=== PATIENT | female | born 2000 | race Caucasian/White ===

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

== ENCOUNTER 2019-03-24 19:49 | Inpatient (IN) | payer BC ==
--- NOTE | 2019-03-24 19:56 | ED ---
General Adult HPI - General Chief complaint: Shortness of Breath Stated complaint: SOB Time Seen by Provider: 03/24/19 19:55 Source: patient Mode of arrival: ambulatory Limitations: no limitations - History of Present Illness Initial comments: 19-year-old female history of asthma presents emergency department for shortness of breath asthma exacerbation. Patient states that she has had cough congestion for the past couple days today she had increasing shortness of breath if identical to her previous asthma exacerbations. 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 Patient denies any leg swelling recent surgeries hemoptysis chest pain or pain with deep inspiration. Patient denies any known history of cancer. Patient denies fevers. Patient has no other complaints. Patient took a total of 7 albuterol nebulized treatments prior to arrival. Patient is able to speak complete sentences however has significant abdominal breathing and slight retractions obvious gross examination. - Related Data Home Medications Medication Instructions Recorded Confirmed Albuterol Inhaler [Ventolin Hfa 2 puff INHALATION RT-Q4H PRN 08/07/16 03/24/19 Inhaler] Albuterol Nebulized [Ventolin 2.5 mg INHALATION RT-QID PRN 01/12/17 03/24/19 Nebulized] Azithromycin [Zithromax Z-pack] See Taper PO DAILY 03/24/19 03/24/19 D-Methorphan/PE/Acetaminophen 2 cap PO Q6H PRN 03/24/19 03/24/19 [Vicks Dayquil Liquicaps] Dm/Acetaminophen/Doxylamine [Vicks 2 cap PO Q6H PRN 03/24/19 03/24/19 Nyquil Liquicaps] Escitalopram [Lexapro] 10 mg PO DAILY 03/24/19 03/24/19 Etonogestrel/Ethinyl Estradiol 1 ring VAGINAL DIRECTED 03/24/19 03/24/19 [Nuvaring Vaginal Ring] Fluticasone/Salmeterol [Advair Hfa 2 puff INHALATION RT-BID 03/24/19 03/24/19 230-21 Mcg Inhaler] predniSONE 50 mg PO DAILY 03/24/19 03/24/19 Previous Rx's Medication Instructions Recorded Montelukast [Singulair] 10 mg PO HS #30 tab 09/25/17 Allergies Allergy/AdvReac Type Severity Reaction Status Date / Time No Known Allergies Allergy Verified 03/24/19 22:30 Review of Systems ROS Statement: Those systems with pertinent positive or pertinent negative responses have been documented in the HPI. ROS Other: All systems not noted in ROS Statement are negative. Past Medical History Past Medical History: Asthma History of Any Multi-Drug Resistant Organisms: None Reported Additional Past Surgical History / Comment(s): [place] teeth removal Past Anesthesia/Blood Transfusion Reactions: No Reported Reaction Past Psychological History: Anxiety, Depression Smoking Status: Never smoker Past Alcohol Use History: None Reported Past Drug Use History: None Reported - Past Family History Mother Additional Family Medical History / Comment(s): [place] Father Family Medical History: Hypertension Brother(s) Family Medical History: Unable to Obtain (No brothers) Sister(s) Family Medical History: Unable to Obtain (No sisters) General Exam - General Exam Comments Initial Comments: General: The patient is awake and alert Eye: +3 mm pupils are equal, round and reactive to light, extra-ocular movements are intact. No nystagmus. There is normal conjunctiva bilaterally. No signs of icterus. No photophobia Ears, nose, mouth and throat: There are moist mucous membranes and no oral lesions. Oropharynx was not erythematous there is no tonsillar enlargement exudates or lesions. Uvula midline. T No anterior cervical lymphadenopathy. Rhinorrhea, clear and bilateral nares. No tripoding, no drooling. Neck: The neck is supple, there is no tenderness or JVD. No nuchal rigidity Cardiovascular: There is a regular rate and rhythm. No murmur, rub or gallop is appreciated. Respiratory: Lung sounds are diminished in all gonzalez there is slight inspiratory and expiratory wheezes audible. No stridor no rales no rhonchi appreciated. Mild retractions, moderate abdominal breathing able to speak complete sentences. Gastrointestinal: Soft, non-distended, non-tender abdomen without masses or organomegaly noted. There is no rebound or guarding present. Bowel sounds are unremarkable. Musculoskeletal: Normal ROM, no tenderness. Strength 5/5. Sensation intact. Radial pulses equal bilaterally 2+. Neurological: A&O x 3. CN II-XII intact grossly, There are no obvious motor or sensory deficits. Coordination appears grossly intact. Speech appears normal, no muffling. Skin: Skin is warm and dry and no rashes or lesions are noted. No extremity edema Psychiatric: Cooperative Limitations: no limitations Course Vital Signs 03/24/19 03/24/19 03/24/19 19:50 20:08 20:22 Temperature 99.3 F Pulse Rate 102 H 134 H 132 H Pulse Rate [ Right] Respiratory 30 H 26 H 22 Rate Blood Pressure 145/94 Blood Pressure [Right Arm] O2 Sat by Pulse 95 100 Oximetry 03/24/19 03/24/19 03/24/19 20:39 21:33 22:52 Temperature Pulse Rate 135 H 109 H 110 H Pulse Rate [ Right] Respiratory 22 19 21 Rate Blood Pressure 132/92 133/88 Blood Pressure [Right Arm] O2 Sat by Pulse 96 97 Oximetry 03/24/19 23:00 Temperature 98.0 F Pulse Rate Pulse Rate [ 101 H Right] Respiratory 14 Rate Blood Pressure Blood Pressure 124/83 [Right Arm] O2 Sat by Pulse 96 Oximetry Medical Decision Making - Medical Decision Making 19-year-old female presenting for shortness of breath. History of asthma. 7 treatments prior to the presentation. Given Solu-Medrol magnesium 7.5 mg treatment. Improvement of air movement, wheeze persistent. Patient will admitted for PRN and scheduled treatments. Patient agreeable, Stable upon transfer to floor with resolution of retractions/abdominal breathing. Discussed case with attending provider Dr. Hopper who is agreeable care plan admission she spoke with the admitting provider Dr. Fuller. - Lab Data Result diagrams: 03/24/19 20:34 03/24/19 20:34 Lab Results 03/24/19 03/24/19 03/24/19 Range/Units 20:08 20:34 20:34 WBC 3.8 (3.8-10.6) k/uL RBC 4.98 (3.80-5.40) m/uL Hgb 14.9 (11.4-16.0) gm/dL Hct 46.3 H (34.0-46.0) % MCV 93.0 (80.0-100.0) fL MCH 29.8 (25.0-35.0) pg MCHC 32.1 (31.0-37.0) g/dL RDW 12.2 (11.5-15.5) % Plt Count 285 (150-450) k/uL Neutrophils % 70 % Lymphocytes % 23 % Monocytes % 4 % Eosinophils % 0 % Basophils % 0 % Neutrophils # 2.7 (1.3-7.7) k/uL Lymphocytes # 0.9 L (1.0-4.8) k/uL Monocytes # 0.2 (0-1.0) k/uL Eosinophils # 0.0 (0-0.7) k/uL Basophils # 0.0 (0-0.2) k/uL Sodium 141 (137-145) mmol/L Potassium 4.3 (3.5-5.1) mmol/L Chloride 111 H (98-107) mmol/L Carbon Dioxide 19 L (22-30) mmol/L Anion Gap 11 mmol/L BUN 13 (7-17) mg/dL Creatinine 0.72 (0.52-1.04) mg/dL Est GFR (CKD-EPI)AfAm >90 (>60 ml/min/1.73 sqM) Est GFR (CKD-EPI)NonAf >90 (>60 ml/min/1.73 sqM) Glucose 117 H (74-99) mg/dL Calcium 10.0 (8.4-10.2) mg/dL Total Bilirubin 0.3 (0.2-1.3) mg/dL AST 19 (14-36) U/L ALT 23 (9-52) U/L Alkaline Phosphatase 76 (38-126) U/L Total Protein 7.5 (6.3-8.2) g/dL Albumin 4.4 (3.5-5.0) g/dL Urine HCG, Qual (Not Detectd) Influenza Type A RNA Not Detected (Not Detectd) Influenza Type B (PCR) Not Detected (Not Detectd) 03/24/19 Range/Units 20:35 WBC (3.8-10.6) k/uL RBC (3.80-5.40) m/uL Hgb (11.4-16.0) gm/dL Hct (34.0-46.0) % MCV (80.0-100.0) fL MCH (25.0-35.0) pg MCHC (31.0-37.0) g/dL RDW (11.5-15.5) % Plt Count (150-450) k/uL Neutrophils % % Lymphocytes % % Monocytes % % Eosinophils % % Basophils % % Neutrophils # (1.3-7.7) k/uL Lymphocytes # (1.0-4.8) k/uL Monocytes # (0-1.0) k/uL Eosinophils # (0-0.7) k/uL Basophils # (0-0.2) k/uL Sodium (137-145) mmol/L Potassium (3.5-5.1) mmol/L Chloride (98-107) mmol/L Carbon Dioxide (22-30) mmol/L Anion Gap mmol/L BUN (7-17) mg/dL Creatinine (0.52-1.04) mg/dL Est GFR (CKD-EPI)AfAm (>60 ml/min/1.73 sqM) Est GFR (CKD-EPI)NonAf (>60 ml/min/1.73 sqM) Glucose (74-99) mg/dL Calcium (8.4-10.2) mg/dL Total Bilirubin (0.2-1.3) mg/dL AST (14-36) U/L ALT (9-52) U/L Alkaline Phosphatase (38-126) U/L Total Protein (6.3-8.2) g/dL Albumin (3.5-5.0) g/dL Urine HCG, Qual Not Detected (Not Detectd) Influenza Type A RNA (Not Detectd) Influenza Type B (PCR) (Not Detectd) Disposition Clinical Impression: Asthma exacerbation, Dyspnea Disposition: ADMITTED IP TO THIS [facility] Condition: Stable Is patient prescribed a controlled substance at d/c from ED?: No Time of Disposition: 21:00 Decision to Admit Reason: Admit from EC Decision Date: 03/24/19
[2019-03-24] MEDS ORDERED: ALBUTEROL NEBULIZED 2.5 MG/3 ML INHALATION STA ×2 (19:58→20:30)
[2019-03-24] MEDS ORDERED: methylPREDNISolone SOD SUCCI 125 MG/2 ML VIAL IV STA (20:00)
[2019-03-24] MEDS ORDERED: MAGNESIUM SULFATE-D5W PMX 1 GM in DEXTROSE/WATER 1 100ML.BAG IVPB ONE (20:00)
[2019-03-24] MEDS: ALBUTEROL INHALATION STA ×4 (20:10→20:32)
[2019-03-24] MEDS: SODIUM CHLORIDE 0.9% INHALATION STA ×4 (20:10→20:32)
[2019-03-24 20:49] LABS: Basophils % (A) 0 %; Eosinophils % (A) 0 %; HCT 46.3 % (34.0-46.0); HGB 14.9 gm/dL (11.4-16.0); Lymphocytes # (A) 0.9 k/uL (1.0-4.8); Lymphocytes % (A) 23 %; MCH 29.8 pg (25.0-35.0); MCHC 32.1 g/dL (31.0-37.0); Mean Platelet Volume 6.3; Monocytes # (A) 0.2 k/uL (0-1.0); Monocytes % (A) 4 %; Neutrophils # (A) 2.7 k/uL (1.3-7.7); Neutrophils % (A) 70 %; Platelet Count 285 k/uL (150-450); RBC 4.98 m/uL (3.80-5.40); RDW 12.2 % (11.5-15.5); WBC 3.8 k/uL (3.8-10.6)
[2019-03-24 21:01] LABS: ALT 23 U/L (9-52); AST 19 U/L (14-36); African American GFR (CKD) >90 (>60 ml/min/1.73 sqM); Albumin 4.4 g/dL (3.5-5.0); Alkaline Phosphatase 76 U/L (38-126); Anion Gap 11 mmol/L; Blood Urea Nitrogen 13 mg/dL (7-17); Carbon Dioxide 19 mmol/L (22-30); Chloride 111 mmol/L (98-107); Glucose 117 mg/dL (74-99); Non-African American GFR(CKD) >90 (>60 ml/min/1.73 sqM); Potassium 4.3 mmol/L (3.5-5.1); Sodium 141 mmol/L (137-145); Total Bilirubin 0.3 mg/dL (0.2-1.3); Total Protein 7.5 g/dL (6.3-8.2)
--- NOTE | 2019-03-24 21:26 | XR ---
EXAMINATION TYPE: XR chest 2V DATE OF EXAM: 03/24/2019 COMPARISON: 01/12/2017 HISTORY: Short of breath TECHNIQUE: Frontal and lateral views of the chest are obtained. FINDINGS: Heart and mediastinum are normal. Lungs are clear. Diaphragm is normal. Bony thorax appear s normal. Pulmonary vascularity is normal. IMPRESSION: Normal chest. No change.
[2019-03-24] MEDS ORDERED: IPRATROPIUM-ALBUTEROL 3 ML NEB INHALATION STA (22:02)
[2019-03-24] MEDS: IPRATROPIUM-ALBUTEROL 3 ML NEB INHALATION PRN (23:48)
[2019-03-25] MEDS: IPRATROPIUM-ALBUTEROL 3 ML NEB INHALATION PRN (03:18)
[2019-03-25] MEDS: ALBUTEROL NEBULIZED 2.5 MG/3 ML INHALATION SCH ×4 (08:00→20:43)
[2019-03-25] MEDS: predniSONE 20 MG TAB PO SCH (08:30)
[2019-03-25] MEDS: LORATADINE 10 MG TAB PO SCH (08:30)
[2019-03-25] MEDS ORDERED: SERTRALINE 25 MG TAB PO SCH (09:00)
--- NOTE | 2019-03-25 11:47 | P.HPIM ---
History of Present Illness 19-year-old female with a history of asthma states the last 6 days she's had a cough fever and bronchospasm. Patient went to clinic treated with Zithromax steroids no improvement. Review of Systems Constitutional: Reports fever Ears, nose, mouth and throat: Reports sore throat Respiratory: Reports cough, Reports dyspnea, Reports wheezing Past Medical History Past Medical History: Asthma History of Any Multi-Drug Resistant Organisms: None Reported Additional Past Surgical History / Comment(s): [place] teeth removal Past Anesthesia/Blood Transfusion Reactions: No Reported Reaction Additional Past Anesthesia/Blood Transfusion Reaction / Comment(s): Woke up during surgery. Past Psychological History: Anxiety, Depression Smoking Status: Never smoker Past Alcohol Use History: None Reported Past Drug Use History: None Reported - Past Family History Mother Additional Family Medical History / Comment(s): [place] Father Family Medical History: Hypertension Brother(s) Family Medical History: Unable to Obtain (No brothers) Sister(s) Family Medical History: Unable to Obtain (No sisters) Medications and Allergies Home Medications Medication Instructions Recorded Confirmed Type Albuterol Inhaler [Ventolin Hfa 2 puff INHALATION RT-Q4H PRN 08/07/16 03/24/19 History Inhaler] Albuterol Nebulized [Ventolin 2.5 mg INHALATION RT-QID PRN 01/12/17 03/24/19 History Nebulized] Montelukast [Singulair] 10 mg PO HS #30 tab 01/14/17 03/24/19 Rx Azithromycin [Zithromax Z-pack] See Taper PO DAILY 03/24/19 03/24/19 History D-Methorphan/PE/Acetaminophen 2 cap PO Q6H PRN 03/24/19 03/24/19 History [Vicks Dayquil Liquicaps] Dm/Acetaminophen/Doxylamine [Vicks 2 cap PO Q6H PRN 03/24/19 03/24/19 History Nyquil Liquicaps] Escitalopram [Lexapro] 10 mg PO DAILY 03/24/19 03/24/19 History Etonogestrel/Ethinyl Estradiol 1 ring VAGINAL DIRECTED 03/24/19 03/24/19 History [Nuvaring Vaginal Ring] Fluticasone/Salmeterol [Advair Hfa 2 puff INHALATION RT-BID 03/24/19 03/24/19 History 230-21 Mcg Inhaler] predniSONE 50 mg PO DAILY 03/24/19 03/24/19 History Allergies Allergy/AdvReac Type Severity Reaction Status Date / Time No Known Allergies Allergy Verified 03/24/19 22:30 Physical Exam Vitals: Vital Signs Temp Pulse Pulse Pulse Resp BP BP 03/25/19 11:41 84 03/25/19 11:27 80 03/25/19 08:14 88 03/25/19 08:00 88 03/25/19 05:00 97.8 F 87 18 119/78 03/25/19 03:46 94 03/25/19 03:19 94 03/25/19 00:07 82 03/24/19 23:49 82 03/24/19 23:00 98.0 F 101 H 14 124/83 03/24/19 22:52 110 H 21 133/88 03/24/19 21:33 109 H 19 132/92 03/24/19 20:39 135 H 22 03/24/19 20:22 132 H 22 03/24/19 20:08 134 H 26 H 03/24/19 19:50 99.3 F 102 H 30 H 145/94 Pulse Ox 03/25/19 11:41 03/25/19 11:27 03/25/19 08:14 03/25/19 08:00 03/25/19 05:00 95 03/25/19 03:46 03/25/19 03:19 03/25/19 00:07 03/24/19 23:49 94 L 03/24/19 23:00 96 03/24/19 22:52 97 03/24/19 21:33 96 03/24/19 20:39 03/24/19 20:22 100 03/24/19 20:08 03/24/19 19:50 95 Intake and Output 03/24/19 03/25/19 03/25/19 22:59 06:59 14:59 Intake Total 600 Balance 600 Intake: Oral 600 Other: Voiding Method Toilet # Voids 3 Weight 56 kg - Constitutional General appearance: mild distress - EENT Eyes: PERRLA ENT: pharyngeal erythema Ears: bilateral: normal - Neck Neck: lymphadenopathy - Respiratory Respiratory: bilateral: diminished, wheezing - Cardiovascular Rhythm: regular - Gastrointestinal General gastrointestinal: soft - Integumentary Integumentary: normal - Neurologic Neurologic: CNII-XII intact - Musculoskeletal Musculoskeletal: gait normal - Psychiatric Psychiatric: A&O x's 3, appropriate affect, intact judgment & insight Results CBC & Chem 7: 03/24/19 20:34 03/24/19 20:34 Labs: Abnormal Lab Results - Last 24 Hours (Table) 03/24/19 03/24/19 Range/Units 20:34 20:34 Hct 46.3 H (34.0-46.0) % Lymphocytes # 0.9 L (1.0-4.8) k/uL Chloride 111 H (98-107) mmol/L Carbon Dioxide 19 L (22-30) mmol/L Glucose 117 H (74-99) mg/dL Chest x-ray: report reviewed Thrombosis Risk Factor Assmnt - Choose All That Apply Any of the Below Risk Factors Present?: No Other Risk Factors: No Other congenital or acquired thrombophilia - If yes, enter type in comment: No Thrombosis Risk Factor Assessment Level: Very Low Risk Assessment and Plan Plan: Assessment History of asthma Acute exacerbation with dyspnea Failed outpatient Anxiety disorder Plan Pulmonology consultation on bronchodilators and steroids
--- NOTE | 2019-03-25 13:23 | P.CNPUL ---
History of Present Illness Consult date: 03/25/19 Reason for consult: asthma Chief complaint: Shortness of breath, cough, and wheezing. History of present illness: This is a 19-year-old white female, known history of mild persistent asthma since she was 2 years old. Initially her asthma was mostly exercise induced, however as she became older, the patient developed worsening symptoms of asthma, maintained mostly on albuterol, and she is her albuterol almost on a daily basis. She was also using Advair on a daily basis, and Singulair. Back in December, the patient had an episode of acute exacerbation, and she was seen by Dr. Katz who recommended a course of prednisone burst and taper. And she was instructed to have some ALLERGY testing and serum IgE levels to be done once she is off the prednisone. However this was never done, and the patient has not been seen by Dr. Katz since December. She has been following up at the [facility] for left hip dysplasia. Over the last 2 weeks, patient had been complaining of intermittent episodes of cough wheezing shortness of breath, symptoms have been much worse over the last 6 days. Cough is described as productive with yellow phlegm, at times clear. No hemoptysis, no brownish phlegm. Denies any chest pain. Patient has been very compliant with her inhalers. However the patient has at least 5 cats at home, and she has one dog. Never been ALLERGY tested for pets. She has symptoms of chronic ALLERGIC rhinitis, she has no symptoms of GERD. She has no symptoms of specific ALLERG IES but her symptoms seemed to be worse during spring and fall. Again the patient has been using her rescue inhaler almost on a daily basis for a long period of time. Chest x-ray on admission showed no evidence of infiltrate. Patient was admitted placed on bronchodilators, antibiotics, steroids, and I was asked to see her on consultation. Review of Systems Constitutional: Denies any fever chills or night sweats denies any weight loss. HEENT: Patient has symptoms of ALLERGIC rhinitis, denies symptoms of chronic sinusitis. Denies sore throat, denies any blurred vision, denies any diplopia. Pulmonary: As noted in HPI, mostly intermittent episodes of cough wheezing shortness of breath, and daily use of rescue inhalers. Cardiac: Denies any chest pain, denies palpitations, denies any syncope, denies any diaphoresis. GI: She has history of irritable bowel syndrome, mostly constipation, has been seen by turn sewer out of town, and she was placed on Linzess which seems to help her constipation significantly. Genitourinary: Denies any dysuria hematuria frequency urgency. Denies any difficulty urinating. Musculoskeletal: Denies any limitation in range of motion, denies any deformities, but she does have chronic left hip dysplasia being followed at the [facility]/orthopedics. Skin: Denies any symptoms of eczema, denies any rashes. Neurologic: Denies any headache blurred vision dizziness. Hematologic: Denies any clotting bleeding or bruising Endocrine: Denies any heat or cold intolerance, denies any polyuria, denies any polyphagia, denies any polydipsia. psychiatric: Denies any symptoms of depression. Past Medical History Past Medical History: Asthma History of Any Multi-Drug Resistant Organisms: None Reported Additional Past Surgical History / Comment(s): [place] teeth removal Past Anesthesia/Blood Transfusion Reactions: No Reported Reaction Additional Past Anesthesia/Blood Transfusion Reaction / Comment(s): Woke up during surgery. Past Psychological History: Anxiety, Depression Smoking Status: Never smoker Past Alcohol Use History: None Reported Past Drug Use History: None Reported - Past Family History Mother Additional Family Medical History / Comment(s): [place] Father Family Medical History: Hypertension Brother(s) Family Medical History: Unable to Obtain (No brothers) Sister(s) Family Medical History: Unable to Obtain (No sisters) Medications and Allergies Home Medications Medication Instructions Recorded Confirmed Type Albuterol Inhaler [Ventolin Hfa 2 puff INHALATION RT-Q4H PRN 08/07/16 03/24/19 History Inhaler] Albuterol Nebulized [Ventolin 2.5 mg INHALATION RT-QID PRN 01/12/17 03/24/19 History Nebulized] Montelukast [Singulair] 10 mg PO HS #30 tab 01/14/17 03/24/19 Rx Azithromycin [Zithromax Z-pack] See Taper PO DAILY 03/24/19 03/24/19 History D-Methorphan/PE/Acetaminophen 2 cap PO Q6H PRN 03/24/19 03/24/19 History [Vicks Dayquil Liquicaps] Dm/Acetaminophen/Doxylamine [Vicks 2 cap PO Q6H PRN 03/24/19 03/24/19 History Nyquil Liquicaps] Escitalopram [Lexapro] 10 mg PO DAILY 03/24/19 03/24/19 History Etonogestrel/Ethinyl Estradiol 1 ring VAGINAL DIRECTED 03/24/19 03/24/19 History [Nuvaring Vaginal Ring] Fluticasone/Salmeterol [Advair Hfa 2 puff INHALATION RT-BID 03/24/19 03/24/19 History 230-21 Mcg Inhaler] predniSONE 50 mg PO DAILY 03/24/19 03/24/19 History Allergies Allergy/AdvReac Type Severity Reaction Status Date / Time No Known Allergies Allergy Verified 03/24/19 22:30 Physical Exam Vitals: Vital Signs Temp Pulse Pulse Pulse Resp BP BP 03/25/19 11:55 97.9 F 67 18 123/71 03/25/19 11:41 84 03/25/19 11:27 80 03/25/19 08:14 88 03/25/19 08:00 88 03/25/19 05:00 97.8 F 87 18 119/78 03/25/19 03:46 94 03/25/19 03:19 94 03/25/19 00:07 82 03/24/19 23:49 82 03/24/19 23:00 98.0 F 101 H 14 124/83 03/24/19 22:52 110 H 21 133/88 03/24/19 21:33 109 H 19 132/92 03/24/19 20:39 135 H 22 03/24/19 20:22 132 H 22 03/24/19 20:08 134 H 26 H 03/24/19 19:50 99.3 F 102 H 30 H 145/94 Pulse Ox 03/25/19 11:55 92 L 03/25/19 11:41 03/25/19 11:27 03/25/19 08:14 03/25/19 08:00 03/25/19 05:00 95 03/25/19 03:46 03/25/19 03:19 03/25/19 00:07 03/24/19 23:49 94 L 03/24/19 23:00 96 03/24/19 22:52 97 03/24/19 21:33 96 03/24/19 20:39 03/24/19 20:22 100 03/24/19 20:08 03/24/19 19:50 95 Intake and Output 03/24/19 03/25/19 03/25/19 22:59 06:59 14:59 Intake Total 600 Balance 600 Intake: Oral 600 Other: Voiding Method Toilet # Voids 3 Weight 56 kg Physical Exam: Revealed a 19-year-old female, on room air, pleasant, in no distress. Head: Atraumatic, normocephalic. HEENT:[Neck is supple.] [No neck masses.] [No thyromegaly.] [No JVD.] PERRLA, EOMI, no icterus. Chest: [Clear throughout, minimal fine wheezing on forced expiratory maneuver only. No chest wall tenderness. Cardiac: Normal S1 and S2, no S3 gallop, no murmur.] Abdomen: [Soft, nontender, no megaly, no rebound, no guarding, normal bowel so unds.] Extremities: [No clubbing, no edema, no cyanosis.] Neurological Exam: [No focal neurologic deficit.] Alert oriented 3. Psychiatric: Normal mood affect and normal mental status examination. Skin: No rashes. Lymphatics: No lymphadenopathy. Musculoskeletal: No limitations in range of motion, no muscle deformities. Results - Laboratory Findings CBC and BMP: 03/24/19 20:34 03/24/19 20:34 Abnormal lab findings: Abnormal Labs 03/24/19 03/24/19 20:34 20:34 Hct 46.3 H Lymphocytes # 0.9 L Chloride 111 H Carbon Dioxide 19 L Glucose 117 H - Diagnostic Findings Chest x-ray: image reviewed (Chest x-ray reviewed no evidence of active disease.) Assessment and Plan Assessment: Impression: 1 acute exacerbation of mild persistent asthma 2 multiple environmental ALLERGIES is strongly suspected. 3 history of irritable bowel syndrome/constipation/chronic 4 history of left hip dysplasia Recommendation: Continue present treatment plan including bronchodilators, antibiotics, prednisone, Singulair, patient will definitely need outpatient follow-up, she would likely benefit from having full pulmonary ALLERGY panel, serum IgE level should be done, total eosinophilic count should also be done, and determine whether the patient would benefit from other modalities of treatment of her asthma. And if the patient is also to have significant ALLERGY to cats or dogs, this will be discussed with the patient accordingly. We will continue to follow. Expect discharge planning in the next 24 hours, patient will need to be discharged on prednisone 40 mg tapered over a period of 3 weeks. And should have a follow-up with Dr. Katz in 2 weeks. Time with Patient: Greater than 30
[2019-03-25] MEDS: guaiFENesin-DM 100-10MG/5ML 10 ML CUP PO PRN (16:41)
[2019-03-25] MEDS: SYMBICORT 160-4.5 MCG INHALER INHALATION SCH (20:58)
[2019-03-25] MEDS: MONTELUKAST 10 MG TAB PO SCH (21:39)
[2019-03-26] MEDS: IPRATROPIUM-ALBUTEROL 3 ML NEB INHALATION PRN ×3 (00:04→23:38)
[2019-03-26] MEDS: ALBUTEROL NEBULIZED 2.5 MG/3 ML INHALATION SCH ×4 (07:36→20:11)
[2019-03-26] MEDS: SYMBICORT 160-4.5 MCG INHALER INHALATION SCH ×2 (07:36→20:11)
[2019-03-26] MEDS: predniSONE 20 MG TAB PO SCH (08:52)
[2019-03-26] MEDS: LORATADINE 10 MG TAB PO SCH (08:52)
[2019-03-26] MEDS: ESCITALOPRAM 10 MG TAB PO SCH (08:52)
--- NOTE | 2019-03-26 11:14 | P.PN ---
Subjective Patient resting in bed noted some improvement continues with expiratory wheeze. Had consultation with pulmonology discussed possible ALLERGY triggers Objective - Vital Signs Vital signs: Vital Signs Temp 98.1 F 03/26/19 04:52 Pulse 100 03/26/19 07:48 Resp 16 03/26/19 04:52 BP 113/66 03/26/19 04:52 Pulse Ox 91 L 03/26/19 04:52 Intake & Output 03/25/19 03/26/19 03/26/19 18:59 06:59 18:59 Intake Total 600 1200 Balance 600 1200 Intake: Oral 600 1200 Other: Voiding Method Toilet # Voids 3 - Constitutional General appearance: Present: mild distress - EENT Eyes: Present: PERRLA Ears: bilateral: normal - Neck Neck: Present: normal ROM - Respiratory Respiratory: bilateral: wheezing - Cardiovascular Rhythm: regular - Gastrointestinal General gastrointestinal: Present: soft - Integumentary Integumentary: Present: normal - Neurologic Neurologic: Present: CNII-XII intact - Musculoskeletal Musculoskeletal: Present: gait normal - Psychiatric Psychiatric: Present: A&O x's 3, appropriate affect, intact judgment & insight - Labs CBC & Chem 7: 03/24/19 20:34 03/24/19 20:34 Assessment and Plan Plan: Assessment Acute exacerbation of asthma dyspnea History of IBS History of left hip dysplasia Plan Continue consultation with pulmonology
--- NOTE | 2019-03-26 13:24 | P.PN ---
Subjective Progress Note Date: 03/26/19 Principal diagnosis: Acute exacerbation of mild persistent bronchial asthma This is a 19-year-old white female, known history of mild persistent asthma since she was 2 years old. Initially her asthma was mostly exercise induced, however as she became older, the patient developed worsening symptoms of asthma, maintained mostly on albuterol, and she is her albuterol almost on a daily basis. She was also using Advair on a daily basis, and Singulair. Back in December, the patient had an episode of acute exacerbation, and she was seen by Dr. Katz who recommended a course of prednisone burst and taper. And she was instructed to have some ALLERGY testing and serum IgE levels to be done once she is off the prednisone. However this was never done, and the patient has not been seen by Dr. Katz since December. She has been following up at the [facility] for left hip dysplasia. Over the last 2 weeks, patient had been complaining of intermittent episodes of cough wheezing shortness of breath, symptoms have been much worse over the last 6 days. Cough is described as productive with yellow phlegm, at times clear. No hemoptysis, no brownish phlegm. Denies any chest pain. Patient has been very compliant with her inhalers. However the patient has at least 5 cats at home, and she has one dog. Never been ALLERGY tested for pets. She has symptoms of chronic ALLERGIC rhinitis, she has no symptoms of GERD. She has no symptoms of specific ALL ERGIES but her symptoms seemed to be worse during spring and fall. Again the patient has been using her rescue inhaler almost on a daily basis for a long period of time. Chest x-ray on admission showed no evidence of infiltrate. Patient was admitted placed on bronchodilators, antibiotics, steroids, and I was asked to see her on consultation. On 03/26/2019 patient seen in follow-up on medical surgical floor. She is calm and comfortable, she states her breathing is improving, she has been ambulating about the room, and she states she is tolerating activity well, no chest tightness, occasional cough, no significant phlegm production, lung sounds reveal scattered rhonchi and some wheezing, but good air entry noted bilaterally, according to the nurse patient is having episodes of tachycardia when she is ambulating, patient seems to be relatively asymptomatic, no complaints of chest pain, related to some liberating medications. Room air pulse ox is 91%, no fever or chills, will continue current medical treatment. Objective - Vital Signs Vital signs: Vital Signs Temp 98.1 F 03/26/19 04:52 Pulse 92 03/26/19 11:47 Resp 16 03/26/19 04:52 BP 113/66 03/26/19 04:52 Pulse Ox 91 L 03/26/19 04:52 Intake & Output 03/25/19 03/26/19 03/26/19 18:59 06:59 18:59 Intake Total 600 1200 Balance 600 1200 Intake: Oral 600 1200 Other: Voiding Method Toilet # Voids 3 - Exam GENERAL EXAM: Alert, active, comfortable in no apparent distress. HEAD: Normocephalic/atraumatic. EYES: Normal reaction of pupils, equal size. Conjunctiva pink, sclera white. NOSE: Clear with pink turbinates. THROAT: No erythema or exudates. NECK: No masses, no JVD, no thyroid enlargement, no adenopathy. CHEST: No chest wall deformity. Symmetrical expansion. LUNGS: Equal air entry with few scattered rhonchi, and some wheezing, increased air entry bilaterally CVS: Regular rate and rhythm, normal S1 and S2, no gallops, no murmurs, no rubs ABDOMEN: Soft, nontender. No hepatosplenomegaly, normal bowel sounds, no guarding or rigidity. EXTREMITIES: No clubbing, no edema, no cyanosis, 2+ pulses and upper and lower extremities. MUSCULOSKELETAL: Muscle strength and tone normal. SPINE: No scoliosis or deformity SKIN: No rashes CENTRAL NERVOUS SYSTEM: Alert and oriented -3. No focal deficits, tone is normal in all 4 extremities. PSYCHIATRIC: Alert and oriented -3. Appropriate affect. Intact judgment and insight. - Labs CBC & Chem 7: 03/24/19 20:34 03/24/19 20:34 Assessment and Plan Plan: Assessment: 1 acute exacerbation of mild persistent asthma 2 multiple environmental ALLERGIES is strongly suspected. 3 history of irritable bowel syndrome/constipation/chronic 4 history of left hip dysplasia Plan: Continue current medical treatment, continue oral steroids, Symbicort, Claritin and Singulair, patient is improving, no acute events overnight. No chest tightness, no significant cough or congestion, patient is having episodes of SVT or sinus tachycardia with exertion. Continue to monitor, continue on medical treatment, if remains stable may consider discharge home in the next 24 hours I performed a history & physical examination of the patient and discussed their management with my nurse practitioner, Pallavi Decker. I reviewed the nurse practitioner's note and agree with the documented findings and plan of care. Lung sounds are positive for a few scattered wheezes. The findings and the impression was discussed with the patient. I attest to the documentation by the nurse practitioner. Time with Patient: Less than 30
[2019-03-26 15:33] LABS: African American GFR (CKD) >90 (>60 ml/min/1.73 sqM); Anion Gap 10 mmol/L; Blood Urea Nitrogen 15 mg/dL (7-17); Calcium 10.2 mg/dL (8.4-10.2); Carbon Dioxide 23 mmol/L (22-30); Chloride 106 mmol/L (98-107); Glucose 113 mg/dL (74-99); Magnesium 2.3 mg/dL (1.6-2.3); Non-African American GFR(CKD) >90 (>60 ml/min/1.73 sqM); Potassium 5.1 mmol/L (3.5-5.1); Sodium 139 mmol/L (137-145)
[2019-03-26 16:59] LABS: T4, Free (Free Thyroxine) 1.39 ng/dL (0.78-2.19)
[2019-03-26] MEDS: MONTELUKAST 10 MG TAB PO SCH (20:39)
[2019-03-27] MEDS: guaiFENesin-DM 100-10MG/5ML 10 ML CUP PO PRN (00:35)
[2019-03-27] MEDS: IPRATROPIUM-ALBUTEROL 3 ML NEB INHALATION PRN ×2 (02:51→16:32)
[2019-03-27] MEDS: ALBUTEROL NEBULIZED 2.5 MG/3 ML INHALATION SCH ×3 (07:06→16:32)
[2019-03-27] MEDS: SYMBICORT 160-4.5 MCG INHALER INHALATION SCH (07:11)
[2019-03-27] MEDS: LORATADINE 10 MG TAB PO SCH (07:53)
[2019-03-27] MEDS: ESCITALOPRAM 10 MG TAB PO SCH (07:53)
[2019-03-27] MEDS: predniSONE 20 MG TAB PO SCH (07:53)
--- NOTE | 2019-03-27 08:10 | ECHOF ---
Referral Reason:tachycardia MEASUREMENTS -------- HEIGHT: 162.6 cm WEIGHT: 55.8 kg BP: 145/92 RVIDd: 2.9 cm (< 3.3) IVSd: 1.0 cm (0.6 - 1.1) LVIDd: 3.8 cm (3.9 - 5.3) LVPWd: 1.3 cm (0.6 - 1.1) IVSs: 1.2 cm LVIDs: 2.8 cm LVPWs: 1.3 cm LAESV Index (A-L): 12.35 ml/m Ao Diam: 2.5 cm (2.0 - 3.7) AV Cusp: 1.9 cm (1.5 - 2.6) LA Diam: 2.8 cm (2.7 - 3.8) MV EXCURSION: 21.189 mm (> 18.000) MV EF SLOPE: 198 mm/s (70 - 150) EPSS: 0.4 cm MV E Simone: 0.82 m/s MV DecT: 115 ms MV A Simone: 0.65 m/s MV E/A Ratio: 1.25 FINDINGS -------- Sinus rhythm. This was a technically adequate study. The left ventricular size is normal. Left ventricular wall thickness is normal. There is normal g lobal left ventricular contractility. Overall left ventricular systolic function is normal with, an EF between 55 - 60 %. The diastolic filling pattern is normal for the age of the patient 12.68. The right ventricle is normal in size. Normal LA size by volume 22+/-6 ml/m2. The right atrial size is normal. Prominant coronary sinus Interatrial and interventricular septum intact. The aortic valve is trileaflet and appears structurally normal. There is no evidence of aortic regu rgitation. There is no evidence of aortic stenosis. There is trace mitral regurgitation. Mild tricuspid regurgitation present. Unable to estimate RVSP due to inadequate TR jet spectral dop pler profile. The pulmonic valve is normal. The aortic root size is normal. Normal inferior vena cava with normal inspiratory collapse consistent with estimated right atrial pre ssure of 5 mmHg. There is no pericardial effusion. CONCLUSIONS -------- 1. Sinus rhythm. 2. This was a technically adequate study. 3. The left ventricular size is normal. 4. Left ventricular wall thickness is normal. 5. There is normal global left ventricular contractility. 6. Overall left ventricular systolic function is normal with, an EF between 55 - 60 %. 7. The diastolic filling pattern is normal for the age of the patient 12.68 8. The right ventricle is normal in size. 9. Normal LA size by volume 22+/-6 ml/m2. 10. The right atrial size is normal. 11. Prominant coronary sinus 12. Interatrial and interventricular septum intact. 13. The aortic valve is trileaflet and appears structurally normal. 14. There is no evidence of aortic regurgitation. 15. There is no evidence of aortic stenosis. 16. There is trace mitral regurgitation. 17. Mild tricuspid regurgitation present. 18. Unable to estimate RVSP due to inadequate TR jet spectral doppler profile. 19. The pulmonic valve is normal. 20. The aortic root size is normal. 21. Normal inferior vena cava with normal inspiratory collapse consistent with estimated right atrial pressure of 5 mmHg. 22. There is no pericardial effusion. SERVICE DISMANTLER: Stephanie Adams RDCS
--- NOTE | 2019-03-27 11:11 | P.CRDCN ---
History of Present Illness History of present illness: HISTORY OF PRESENTING ILLNESS This is a pleasant 19-year-old female past medical history significant for asthma, marijuana use and depression. She denies prior history of coronary artery disease, hypertension or dyslipidemia. She presented with shortness of breath, cough and congestion. She does not follow in the office with a residential designer for any reason. We have been asked to see her in consultation for tachycardia. She is currently being treated for acute exacerbation of asthma. Currently maintained on albuterol, symbicort, robitussin, claritin, singular and prednisone. She is on telemetry and it is noted that when she gets up to the bathroom or does any exertional activity she becomes tachycardic. Heart rate goes up to 160 and regular. No arrhythmia noted. At rest telemetry tracings reveal sinus mechanism heart rate fluctuating between 90 and 115. She denies chest pain, dizziness or shortness of breath. She can feel the palpitations. She states at home at times she also feels this sensation. She states she uses her albuterol inhaler at home daily multiple times. DIAGNOSTICS EKG reveals sinus tachycardia. Chest xray negative for an acute cardiopulmonary process. Echocardiogram reveals preserved LV systolic function with ejection fraction 55- 60%. Laboratory reviewed, WBC 3.8, hemoglobin 14.9, platelets 285, sodium 139, potassium 5.1, creatinine 0.7, magnesium 2.3, TSH 0.112 with a free T4 of 1.39. She takes no daily cardiac medications. REVIEW OF SYSTEMS At the time of my exam: CONSTITUTIONAL: Denies fever or chills. CARDIOVASCULAR: Denies chest pain, shortness of breath, orthopnea, PND or palpitations. RESPIRATORY: Complains of cough. GASTROINTESTINAL: Denies abdominal pain, diarrhea, constipation, nausea or vomiting. MUSCULOSKELETAL: Denies myalgias. NEUROLOGIC: Denies numbness, tingling or weakness. ENDOCRINE: Denies fatigue, weight change, polydipsia or polyurina. GENITOURINARY: Denies burning, hematuria or urgency with micturation. HEMATOLOGIC: Denies history of anemia or bleeding. PHYSICAL EXAMINATION Blood pressure 132/83 heart rate 99 afebrile and maintaining oxygen saturaiton on room air. CONSTITUTIONAL: No apparent distress. HEENT: Head is normocephalic. Pupils are equal, round. Sclerae anicteric. Mucous membranes of the mouth are moist. No JVD. No carotid bruit. CHEST EXAMINATION: Faint expiratory wheeze bilateral bases, scattered rhonchi. No rales No chest wall tenderness is noted on palpation or with deep breathing. HEART EXAMINATION: Regular rate and rhythm. S1, S2 heard. No murmurs, gallops or rub. ABDOMEN: Soft, nontender. Positive bowel sounds. EXTREMITIES: 2+ peripheral pulses, no lower extremity edema and no calf tenderness. NEUROLOGIC EXAMINATION: Patient is awake, alert and oriented x3. ASSESSMENT Sinus tachycardia Acute exacerbation of chronic asthma PLAN Echocardiogram has been reviewed, no abnormalities. Recommend optimizing her asthma therapy with medications that do not increase th e heart rate. No further cardiac testing or treatment recommended. Thank you kindly for this consultation. Nurse Practitioner note has been reviewed, I agree with a documented findings and plan of care. Patient was seen and examined. Past Medical History Past Medical History: Asthma History of Any Multi-Drug Resistant Organisms: None Reported Additional Past Surgical History / Comment(s): Sandstone teeth removal Past Anesthesia/Blood Transfusion Reactions: No Reported Reaction Additional Past Anesthesia/Blood Transfusion Reaction / Comment(s): Woke up during surgery. Past Psychological History: Anxiety, Depression Smoking Status: Never smoker Past Alcohol Use History: None Reported Past Drug Use History: None Reported - Past Family History Mother Additional Family Medical History / Comment(s): [place] Father Family Medical History: Hypertension Brother(s) Family Medical History: Unable to Obtain (No brothers) Sister(s) Family Medical History: Unable to Obtain (No sisters) Medications and Allergies Home Medications Medication Instructions Recorded Confirmed Type Albuterol Inhaler [Ventolin Hfa 2 puff INHALATION RT-Q4H PRN 08/07/16 03/24/19 History Inhaler] Albuterol Nebulized [Ventolin 2.5 mg INHALATION RT-QID PRN 01/12/17 03/24/19 History Nebulized] Montelukast [Singulair] 10 mg PO HS #30 tab 01/14/17 03/24/19 Rx Azithromycin [Zithromax Z-pack] See Taper PO DAILY 03/24/19 03/24/19 History D-Methorphan/PE/Acetaminophen 2 cap PO Q6H PRN 03/24/19 03/24/19 History [Vicks Dayquil Liquicaps] Dm/Acetaminophen/Doxylamine [Vicks 2 cap PO Q6H PRN 03/24/19 03/24/19 History Nyquil Liquicaps] Escitalopram [Lexapro] 10 mg PO DAILY 03/24/19 03/24/19 History Etonogestrel/Ethinyl Estradiol 1 ring VAGINAL DIRECTED 03/24/19 03/24/19 History [Nuvaring Vaginal Ring] Fluticasone/Salmeterol [Advair Hfa 2 puff INHALATION RT-BID 03/24/19 03/24/19 History 230-21 Mcg Inhaler] predniSONE 50 mg PO DAILY 03/24/19 03/24/19 History predniSONE 0 mg PO DIRECTED 16 Days #40 tab 03/27/19 Rx Allergies Allergy/AdvReac Type Severity Reaction Status Date / Time No Known Allergies Allergy Verified 03/24/19 22:30 Physical Exam Vitals: Vital Signs Temp Pulse Pulse Pulse Resp BP Pulse Ox 03/27/19 07:57 100 128 H 17 03/27/19 07:24 116 H 03/27/19 07:06 104 H 03/27/19 05:00 97 F L 128 H 17 132/83 92 L 03/27/19 03:04 93 03/27/19 02:53 92 03/26/19 23:52 94 03/26/19 23:39 92 03/26/19 20:40 97.8 F 107 H 16 126/90 94 L 03/26/19 20:24 90 03/26/19 20:14 88 03/26/19 17:38 90 03/26/19 17:25 89 03/26/19 13:00 98.3 F 70 16 145/92 91 L 03/26/19 11:47 92 03/26/19 11:37 80 Intake and Output 03/26/19 03/27/19 03/27/19 22:59 06:59 14:59 Other: Voiding Method Toilet Toilet # Voids 2 2 Results 03/24/19 20:34 03/26/19 14:52 Comprehensive Metabolic Panel 03/26/19 Range/Units 14:52 Sodium 139 (137-145) mmol/L Potassium 5.1 (3.5-5.1) mmol/L Chloride 106 (98-107) mmol/L Carbon Dioxide 23 (22-30) mmol/L BUN 15 (7-17) mg/dL Creatinine 0.70 (0.52-1.04) mg/dL Glucose 113 H (74-99) mg/dL Calcium 10.2 (8.4-10.2) mg/dL Current Medications Generic Name Dose Route Start Last Admin Trade Name Freq PRN Reason Stop Dose Admin Albuterol Sulfate 2.5 mg 03/25/19 08:00 03/27/19 07:06 Ventolin Nebulized INHALATION 2.5 mg RT-QID RYLAN Administration Albuterol/Ipratropium 3 ml 03/24/19 22:55 03/27/19 02:51 Duoneb 0.5 Mg-3 Mg/3 Ml Soln INHALATION 3 ml RT-Q2H PRN Administration Shortness Of Breath Or Wheezing Budesonide/Formoterol Fumarate 2 puff 03/25/19 20:00 03/27/19 07:11 Symbicort 160-4.5 Mcg Inhaler INHALATION 2 puff RT-BID RYLAN Administration Escitalopram Oxalate 10 mg 03/26/19 09:00 03/27/19 07:53 Lexapro PO 10 mg DAILY RYLAN Administration Guaifenesin/Dextromethorphan 10 ml 03/25/19 13:07 03/27/19 00:35 Robitussin Dm PO 10 ml Q6H PRN Administration Cough Loratadine 10 mg 03/25/19 09:00 03/27/19 07:53 Claritin PO 10 mg DAILY RYLAN Administration Montelukast Sodium 10 mg 03/25/19 21:00 03/26/19 20:39 Singulair PO 10 mg HS RYLAN Administration Prednisone 40 mg 03/25/19 09:00 03/27/19 07:53 PO 40 mg DAILY RYLAN Administration Intake and Output 03/26/19 03/27/19 03/27/19 22:59 06:59 14:59 Other: Voiding Method Toilet Toilet # Voids 2 2 03/24/19 20:34 03/26/19 14:52
[2019-03-27 12:28] VITALS: BP 134/77; RESP 16; TEMP 98.3
[2019-03-27] MEDS ORDERED: FAMOTIDINE 20 MG TAB PO SCH (13:15)
[2019-03-27] MEDS ORDERED: AZITHROMYCIN 500 MG TAB PO SCH (14:15)
--- NOTE | 2019-03-27 14:47 | P.PN ---
Subjective Progress Note Date: 03/27/19 Principal diagnosis: Acute exacerbation of mild persistent bronchial asthma This is a 19-year-old white female, known history of mild persistent asthma since she was 2 years old. Initially her asthma was mostly exercise induced, however as she became older, the patient developed worsening symptoms of asthma, maintained mostly on albuterol, and she is her albuterol almost on a daily basis. She was also using Advair on a daily basis, and Singulair. Back in December, the patient had an episode of acute exacerbation, and she was seen by Dr. Katz who recommended a course of prednisone burst and taper. And she was instructed to have some ALLERGY testing and serum IgE levels to be done once she is off the prednisone. However this was never done, and the patient has not been seen by Dr. Katz since December. She has been following up at the [facility] for left hip dysplasia. Over the last 2 weeks, patient had been complaining of intermittent episodes of cough wheezing shortness of breath, symptoms have been much worse over the last 6 days. Cough is described as productive with yellow phlegm, at times clear. No hemoptysis, no brownish phlegm. Denies any chest pain. Patient has been very compliant with her inhalers. However the patient has at least 5 cats at home, and she has one dog. Never been ALLERGY tested for pets. She has symptoms of chronic ALLERGIC rhinitis, she has no symptoms of GERD. She has no symptoms of specific ALL ERGIES but her symptoms seemed to be worse during spring and fall. Again the patient has been using her rescue inhaler almost on a daily basis for a long period of time. Chest x-ray on admission showed no evidence of infiltrate. Patient was admitted placed on bronchodilators, antibiotics, steroids, and I was asked to see her on consultation. On 03/26/2019 patient seen in follow-up on medical surgical floor. She is calm and comfortable, she states her breathing is improving, she has been ambulating about the room, and she states she is tolerating activity well, no chest tightness, occasional cough, no significant phlegm production, lung sounds reveal scattered rhonchi and some wheezing, but good air entry noted bilaterally, according to the nurse patient is having episodes of tachycardia when she is ambulating, patient seems to be relatively asymptomatic, no complaints of chest pain, related to some liberating medications. Room air pulse ox is 91%, no fever or chills, will continue current medical treatment. On 03/27/2019 patient seen in follow-up on medical floor, doing well, improving, occasional cough, lung sounds reveal good air entry bilaterally, slightly coarse breath sounds, no major wheezing, vital signs have been stable, patient is on room air and she is tolerating ambulation. Echocardiogram was completed in regards to sinus tachycardia and revealed normal LV function with EF of 55-60%, no evidence of aortic stenosis, trace mitral regurg, trace tricuspid regurg. Patient has been evaluated by cardiology and felt that her tachycardia was related to treatment of her asthma. Clinically stable, heart rate is fluctuating between 90-128 BPM, clinically asymptomatic anticipate discharge home today Objective - Vital Signs Vital signs: Vital Signs Temp 98.3 F 03/27/19 12:27 Pulse 104 H 03/27/19 12:27 Resp 16 03/27/19 12:27 BP 134/77 03/27/19 12:27 Pulse Ox 92 L 03/27/19 12:27 Intake & Output 03/26/19 03/27/19 03/27/19 18:59 06:59 18:59 Other: Voiding Method Toilet Toilet # Voids 2 2 3 - Exam GENERAL EXAM: Alert, active, comfortable in no apparent distress. HEAD: Normocephalic/atraumatic. EYES: Normal reaction of pupils, equal size. Conjunctiva pink, sclera white. NOSE: Clear with pink turbinates. THROAT: No erythema or exudates. NECK: No masses, no JVD, no thyroid enlargement, no adenopathy. CHEST: No chest wall deformity. Symmetrical expansion. LUNGS: Equal air entry with few scattered rhonchi, and some wheezing, increased air entry bilaterally CVS: Regular rate and rhythm, normal S1 and S2, no gallops, no murmurs, no rubs ABDOMEN: Soft, nontender. No hepatosplenomegaly, normal bowel sounds, no guarding or rigidity. EXTREMITIES: No clubbing, no edema, no cyanosis, 2+ pulses and upper and lower extremities. MUSCULOSKELETAL: Muscle strength and tone normal. SPINE: No scoliosis or deformity SKIN: No rashes CENTRAL NERVOUS SYSTEM: Alert and oriented -3. No focal deficits, tone is normal in all 4 extremities. PSYCHIATRIC: Alert and oriented -3. Appropriate affect. Intact judgment and insight. - Labs CBC & Chem 7: 03/24/19 20:34 03/26/19 14:52 Labs: Abnormal Lab Results - Last 24 Hours (Table) 03/26/19 Range/Units 14:52 Glucose 113 H (74-99) mg/dL TSH 0.112 L (0.465-4.680) mIU/L Microbiology - Last 24 Hours (Table) 03/27/19 00:00 Gram Stain - Preliminary Sputum Sputum Culture - Preliminary Assessment and Plan Plan: Assessment: 1 acute exacerbation of mild persistent asthma 2 sinus tachycardia, echocardiogram revealed normal LV function, no valvular heart disease, likely related to combination of short and long-acting beta agonist agents 2 multiple environmental ALLERGIES is strongly suspected. 3 history of irritable bowel syndrome/constipation/chronic 4 history of left hip dysplasia Plan: Clinically patient is stable, improved, her tachycardia at times is likely due to combination of long and short acting beta agonist agents being used for treatment of her acute exacerbation of asthma. Clinically stable, she is on room air, tolerating ablation, from pulmonary perspective she is stable for discharge home today on the prednisone taper, she can resume her ADvair, Albuterol inhaler, and nebulized treatments, continue Singulair and Claritin. Empiric antibiotics have been added, patient can finish outpatient course of oral antibiotics. Anticipate discharge home today. Patient can follow up with Dr. Katz in in the office next week I performed a history & physical examination of the patient and discussed their management with my nurse practitioner, Pallavi Decker. I reviewed the nurse practitioner's note and agree with the documented findings and plan of care. Lung sounds are positive for a few scattered wheezes. The findings and the impression was discussed with the patient. I attest to the documentation by the nurse practitioner. Time with Patient: Less than 30
[2019-03-27 16:53] VITALS: PULSE 100
--- NOTE | 2019-04-20 01:54 | P.DS ---
Providers Date of admission: 03/26/19 14:20 Expected date of discharge: 03/27/19 Attending physician: Andrew Fuller Consults: 03/24/19 22:04 Consult Physician Routine Consulting Provider: Tom Katz Consult Reason/Comments: pulmonolgy consult - established patient Do you want consulting provider notified?: Yes, Notify in am 03/26/19 13:22 Consult Physician Routine Consulting Provider: Josiah Fischer Consult Reason/Comments: tachycardia Do you want consulting provider notified?: Yes Primary care physician: Andrew Fuller Hospital Course: Discharge diagnosis 1 acute exacerbation of mild persistent asthma 2 sinus tachycardia, echocardiogram revealed normal LV function, no valvular heart disease, likely related to combination of short and long-acting beta agoni st agents 2 multiple environmental ALLERGIES is strongly suspected. 3 history of irritable bowel syndrome/constipation/chronic 4 history of left hip dysplasia Hospital course Patient was admitted to the hospital with acute asthma exacerbation. 03 27 2019 Patient is currently in the medical floor. Breathing status is improving. Bilateral air entry improved. No wheezing noted except mild expiratory wheeze. Currently patient is on room air and is ambulating well without much short of breath. Echocardiogram was completed in regards to sinus tachycardia and revealed normal LV function with EF of 55-60%, no evidence of aortic stenosis, trace mitral regurg, trace tricuspid regurg. Patient has been evaluated by cardiology and felt that her tachycardia was related to treatment of her asthma. Clinically stable, heart rate is fluctuating between 90-128 BPM, clinically asymptomatic and is being discharged home today. Patient be continued on prednisone tapering dose. she can resume her ADvair, Albuterol inhaler, and nebulized treatments, continue Singulair and Claritin. Empiric antibiotics have been added, patient can finish outpatient course of oral antibiotics. follow up with Dr. Katz in in the office next week. PHYSICAL EXAMINATION: Patient is lying in the bed comfortably, no acute distress, awake alert and oriented.. HEENT: Normocephalic. Neck is supple. Pupils reactive. Nostrils clear. Oral cavity is moist. Ears reveal no drainage. Neck reveals no JVD, carotid bruits, or thyromegaly. CHEST EXAMINATION: Trachea is central. Symmetrical expansion. Mild expiratory wheeze. No rhonchi. Lung gonzalez clear to auscultation and percussion. CARDIAC: Normal S1, S2 with no gallops. No murmurs ABDOMEN: Soft. Bowel sounds normal. No organomegaly. No abdominal bruits. Extremities: reveal no edema. No clubbing or cyanosis Neurologically awake, alert, oriented x3 with well-coordinated movements. No focal deficits noted Skin: No rash or skin lesions. Psychiatric: Coperative. Nonsuicidal Musculoskeletal: No joint swelling or deformity. Normal range of motion. Vital Signs Temp 98.3 F 03/27/19 12:27 Pulse 104 H 03/27/19 12:27 Resp 16 03/27/19 12:27 BP 134/77 03/27/19 12:27 Pulse Ox 92 L 03/27/19 12:27 Intake & Output 03/26/19 03/27/19 03/27/19 18:59 06:59 18:59 Other: Voiding Method Toilet Toilet # Voids 2 2 3 Patient Condition at Discharge: Stable Plan - Discharge Summary Discharge Rx Participant: No New Discharge Prescriptions: New predniSONE 0 mg PO DIRECTED 16 Days #40 tab Continue Albuterol Inhaler [Ventolin Hfa Inhaler] 2 puff INHALATION RT-Q4H PRN PRN Reason: Shortness Of Breath Albuterol Nebulized [Ventolin Nebulized] 2.5 mg INHALATION RT-QID PRN PRN Reason: Shortness Of Breath Montelukast [Singulair] 10 mg PO HS #30 tab Fluticasone/Salmeterol [Advair Hfa 230-21 Mcg Inhaler] 2 puff INHALATION RT- BID Escitalopram [Lexapro] 10 mg PO DAILY Azithromycin [Zithromax Z-pack] See Taper PO DAILY D-Methorphan/PE/Acetaminophen [Vicks Dayquil Liquicaps] 2 cap PO Q6H PRN PRN Reason: Cold Symptoms Etonogestrel/Ethinyl Estradiol [Nuvaring Vaginal Ring] 1 ring VAGINAL DIRECTED Discontinued predniSONE 50 mg PO DAILY Dm/Acetaminophen/Doxylamine [Vicks Nyquil Liquicaps] 2 cap PO Q6H PRN PRN Reason: Cold Symptoms Discharge Medication List Albuterol Inhaler [Ventolin Hfa Inhaler] 2 puff INHALATION RT-Q4H PRN 08/07/16 [History] Albuterol Nebulized [Ventolin Nebulized] 2.5 mg INHALATION RT-QID PRN 01/12/17 [History] Montelukast [Singulair] 10 mg PO HS #30 tab 01/14/17 [Rx] Azithromycin [Zithromax Z-pack] See Taper PO DAILY 03/24/19 [History] D-Methorphan/PE/Acetaminophen [Vicks Dayquil Liquicaps] 2 cap PO Q6H PRN 03/24/19 [History] Escitalopram [Lexapro] 10 mg PO DAILY 03/24/19 [History] Etonogestrel/Ethinyl Estradiol [Nuvaring Vaginal Ring] 1 ring VAGINAL DIRECTED 03/24/19 [History] Fluticasone/Salmeterol [Advair Hfa 230-21 Mcg Inhaler] 2 puff INHALATION RT-BID 03/24/19 [History] predniSONE 0 mg PO DIRECTED 16 Days #40 tab 03/27/19 [Rx] Follow up Appointment(s)/Referral(s): Andrew Fuller MD [Primary Care Provider] - 1-2 days (Patient to call Dr. Fuller's office Saturday to schedule follow up appointment. The office is closed at time of discharge. ) Tom Katz MD [STAFF PHYSICIAN] - 1 Week (Patient to call Dr. Katz's office Saturday to schedule follow up appointment. The office is closed at time of discharge.) Patient Instructions/Handouts: Prednisone (By mouth), Azithromycin (By mouth), Asthma (DC), Dyspnea (DC) Discharge Disposition: HOME SELF-CARE
== END 2019-03-27 17:30 | disposition home or self-care (01) | DRG 203 ==
LOC: EC 19:49 → 3NMEDONC 22:04 → OBSVTOIN 03-26 14:20
PROVIDERS: ADMIT Family Medicine; ATTEND Family Medicine
DX: J45.31 Mild persistent asthma with (acute) exacerbation (principal); F32.9 Major depressive disorder, single episode, unspecified; F41.9 Anxiety disorder, unspecified; Z79.51 Long term (current) use of inhaled steroids; Z79.52 Long term (current) use of systemic steroids; Z79.899 Other long term (current) drug therapy; Z82.49 Family history of ischemic heart disease and other diseases of the circulatory system; R00.0 Tachycardia, unspecified; K58.1 Irritable bowel syndrome with constipation; Q65.89 Other specified congenital deformities of hip; T78.49XA Other allergy, initial encounter
CPT/HCPCS: 36415; 71046; 80048; 80053; 81025; 83735; 84439; 84443; 85025; 87070; 87205; 87502; 93005; 93306; 94640; 96365; 96375; 99285

== ENCOUNTER → 2022-01-23 | Outpatient (CLI) | payer BC ==
[2022-01-23 22:49] LABS: Alternaria alternata IgE 5.24 kU/L; Aspergillus fumagatus IgE <0.10 kU/L; Cladosporian herbarum IgE <0.10 kU/L; Elm IgE <0.10 kU/L; Maple (Box Elder) IgE 1.19 kU/L; Oak IgE 0.13 kU/L; Ragweed,Common IgE <0.10 kU/L
[2022-01-23 22:50] LABS: Cockroach IgE <0.10 kU/L; Dog Dander IgE 8.61 kU/L; Red Top (Bentgrass) IgE <0.10 kU/L
[2022-01-24 13:42] LABS: Immunoglobulin E 1274
== END | disposition home or self-care (01) ==
LOC: LABWHC1 12:33
PROVIDERS: ATTEND Internal Medicine Critical Care Medicine
DX: J45.901 Unspecified asthma with (acute) exacerbation (principal)
CPT/HCPCS: 36415; 82785; 85008; 86003

== ENCOUNTER 2022-05-07 11:15 | Emergency (ER) | payer BC ==
[2022-05-07 12:05] VITALS: TEMP 98.4
--- NOTE | 2022-05-07 12:41 | ED ---
Chest Pain HPI - General Source: patient, RN notes reviewed Mode of arrival: ambulatory <Daniela White - Last Filed: 05/07/22 12:45> - General Source: patient, family, RN notes reviewed, old records reviewed - History of Present Illness -: days(s) (1) Onset: other (while baking) Pain Location: substernal Pain Radiation: other (throat) Severity scale (1-10): 3 Quality: sharp Consistency: constant Improves With: nothing Treatments Prior to Arrival: other (tylenol and tums yesterday with no relief) <Eugenio Zuniga - Last Filed: 05/07/22 23:20> - General Chief Complaint: Chest Pain Stated Complaint: chest pain Time Seen by Provider: 05/07/22 15:05 - History of Present Illness Initial Comments: Patient is a 22 year old female who presents to the emergency department with a chief complaint of chest pain. Pain started yesterday in the center of patient's chest with radiation to her throat. Denies injury. For the most part pain is consistent and sharp which is worsened with activity and breathing. Patient denies lightheadedness, dizziness, shortness of breath, abdominal pain, nausea, vomiting. Reports congestion, mild cough, occasional episodes of diarrhea, nonbloody. Patient does not have history of cardiac disease. She is a nonsmoker. (Daniela White) This is a well-appearing 22-year-old female that presents to the emergency room with complaints of sharp sternal chest pain radiating into her throat. Denies any fevers, nausea vomiting or diarrhea. Denies any shortness of breath or cough. She states that she started having the pain at 11:00 yesterday morning while baking. Does have a history of asthma and recently started vaping. No oral contraceptions does have NuvaRing. No family history of sudden cardiac . Patient states only takes asthma medications daily no other medications. (Eugenio Zuniga) - Related Data Home Medications Medication Instructions Recorded Confirmed Albuterol Inhaler [Ventolin Hfa 2 puff INHALATION RT-Q4H PRN 08/07/16 03/24/19 Inhaler] Albuterol Nebulized [Ventolin 2.5 mg INHALATION RT-QID PRN 01/12/17 03/24/19 Nebulized] Azithromycin [Zithromax Z-pack (6 See Taper PO DAILY 03/24/19 03/24/19 tabs)] D-Methorphan/PE/Acetaminophen 2 cap PO Q6H PRN 03/24/19 03/24/19 [Vicks Dayquil Liquicaps] Escitalopram [Lexapro] 10 mg PO DAILY 03/24/19 03/24/19 Etonogestrel/Ethinyl Estradiol 1 ring VAGINAL DIRECTED 03/24/19 03/24/19 [Nuvaring Vaginal Ring] Fluticasone Propion/Salmeterol 2 puff INHALATION RT-BID 03/24/19 03/24/19 [Advair Hfa 230-21 Mcg Inhaler] Previous Rx's Medication Instructions Recorded Montelukast [Singulair] 10 mg PO HS #30 tab 01/14/17 predniSONE 0 mg PO DIRECTED 16 Days #40 tab 03/27/19 Allergies Allergy/AdvReac Type Severity Reaction Status Date / Time latex Allergy Rash/Hives Verified 05/07/22 12:05 Review of Systems ROS Other: All systems not noted in ROS Statement are negative. <Daniela White - Last Filed: 05/07/22 12:45> ROS Other: All systems not noted in ROS Statement are negative. <Eugenio Zuniga - Last Filed: 05/07/22 23:20> ROS Statement: Those systems with pertinent positive or pertinent negative responses have been documented in the HPI. EKG Findings - EKG Results: EKG: sinus rhythm (Sinus rhythm with a ventricular rate of 73, MD interval 0.142, QRS 0.91, QTC 0.379; normal axis) <Eugenio Zuniga - Last Filed: 05/07/22 23:20> Past Medical History Past Medical History: Asthma History of Any Multi-Drug Resistant Organisms: None Reported Past Surgical History: Orthopedic Surgery Additional Past Surgical History / Comment(s): [place] teeth removal Past Anesthesia/Blood Transfusion Reactions: No Reported Reaction Additional Past Anesthesia/Blood Transfusion Reaction / Comment(s): Woke up during surgery. Past Psychological History: Anxiety, Depression Smoking Status: Never smoker Past Alcohol Use History: None Reported Past Drug Use History: None Reported - Past Family History Mother Additional Family Medical History / Comment(s): [place] Father Family Medical History: Hypertension Brother(s) Family Medical History: Unable to Obtain (No brothers) Sister(s) Family Medical History: Unable to Obtain (No sisters) <Daniela White - Last Filed: 05/07/22 12:45> General Exam General appearance: alert, in no apparent distress Head exam: Present: atraumatic Eye exam: Absent: scleral icterus, conjunctival injection, periorbital swelling ENT exam: Present: normal oropharynx, mucous membranes moist Neck exam: Present: full ROM. Absent: meningismus Respiratory exam: Present: normal lung sounds bilaterally. Absent: respiratory distress, wheezes, rales, rhonchi, stridor, chest wall tenderness, accessory muscle use Cardiovascular Exam: Present: regular rate, normal heart sounds GI/Abdominal exam: Present: soft. Absent: distended, tenderness, rigid Extremities exam: Present: normal capillary refill. Absent: pedal edema Neurological exam: Present: alert, oriented X3 Psychiatric exam: Present: normal affect, normal mood Skin exam: Present: warm, dry, normal color. Absent: cyanosis, diaphoretic, petechiae, pallor <Eugenio Zuniga - Last Filed: 05/07/22 23:20> Course - Reevaluation(s) Time: 15:44 <Eugenio Zuniga - Last Filed: 05/07/22 23:20> Vital Signs 05/07/22 05/07/22 12:00 17:30 Temperature 98.4 F Pulse Rate 90 80 Respiratory 18 16 Rate Blood Pressure 121/81 114/69 O2 Sat by Pulse 98 97 Oximetry - Reevaluation(s) Reevaluation #1: 05/07/22 15:44 Patient states no improvement after GI cocktail. Continues to have chest pain not as bad as when she first arrived but was improving prior to GI cocktail. Mom at bedside states could be musculoskeletal, will try Toradol. (Eugenio Zuniga) Chest Pain [facility] <Eugenio Zuniga - Last Filed: 05/07/22 23:20> - [facility] EKG shows sinus rhythm with no ectopy. Normal intervals. Troponin is negative. Vital signs are stable. CBC and electrolytes unremarkable. D-dimer is negative. Influenza coronavirus swabs are negative. She was given Toradol and GI cocktail with some relief. This is likely musculoskeletal pain. No family history of sudden cardiac . She was directed to stop vaping, continue her asthma medication and pepcid twice a day. Follow-up with her primary care doctor this week and return with any new or concerning symptoms. Patient's mother agreeable to this plan of care. Case discussed with Dr. Davis Was pt. sent in by a medical professional or institution? @ -No Did you speak to anyone other than the patient for history? @ -Mother Did you review nursing and triage notes? @ -Yes I agree Were old charts reviewed? @ -no Differential Diagnosis? @ -Differential Chest Pain: Stable Angina, Unstable Angina, STEMI, NSTEMI Aortic Dissection, Pneumothorax, Musculoskeletal, Esophageal Spasm GERD, Cholecystitis, Pancreatitis, Zoster, this is not meant to be an all-inclusive list. EKG interpreted by me (3pts min.)? @ -Yes as above X-rays interpreted by me (1pt min.)? @ Chest x-ray interpreted by me shows no evidence of consolidation. Trachea midline. Radiologist impression no acute pulmonary process. What testing was considered but not performed? (CT, X-rays, U/S, labs)? Why? @ None What meds were considered but not given? Why? @ -None Did you discuss the management of the patient with other professionals? @ -no Did you reconcile home meds? @ -no Was smoking cessation discussed for >3mins.? @ -yes Was critical care preformed (if so, how long)? @ -no Were there social determinants of health that impacted care today? How? (Homelessness, low income, unemployed, alcoholism, drug addiction, transportation, low edu. Level, literacy, decrease access to med. care, shelter, rehab)? @ -None Was there de-escalation of care discussed even if they declined? (Discuss DNR or withdrawal of care, Hospice)? @ -No What co-morbidities impacted this encounter? (DM, HTN, Smoking, COPD, CAD, Cancer, CVA, Hep., AIDS, mental health diagnosis, sleep apnea, morbid obesity)? @ -Asthma, smoking Was patient admitted / discharged? @ -Discharged Undiagnosed new problem with uncertain prognosis? @ -[none] Drug Therapy requiring intensive monitoring for toxicity (Heparin, Nitro, Insulin, Cardizem)? @ -No Were any procedures done? @ -no Diagnosis/symptom? @ -Musculoskeletal chest pain Acute, or Chronic, or Acute on Chronic? @ -Acute Uncomplicated (without systemic symptoms) or Complicated (systemic symptoms)? @ -[default] Side effects of treatment? @ -[none] Exacerbation, Progression, or Severe Exacerbation] @ -[no] Poses a threat to life or bodily function? @ -[no] (Eugenio Zuniga) Disposition <Chilango Whitena - Last Filed: 05/07/22 12:45> Is patient prescribed a controlled substance at d/c from ED?: No Time of Disposition: 17:21 <Eugenio Zuniga - Last Filed: 05/07/22 23:20> Clinical Impression: Musculoskeletal pain Disposition: HOME SELF-CARE Condition: Good Instructions (If sedation given, give patient instructions): Musculoskeletal Pain (ED) Additional Instructions: Increase your fluid intake. Take Pepcid twice a day. Stop vaping. Tylenol and or Motrin for any pain or discomfort. Follow-up with primary care doctor this week. Referrals: Andrew Fuller MD [Primary Care Provider] - 1-2 days
--- NOTE | 2022-05-07 12:53 | XR ---
EXAMINATION TYPE: XR chest 2V DATE OF EXAM: 05/07/2022 COMPARISON: 03/24/2019 INDICATION: Pain TECHNIQUE: Frontal and lateral views of the chest are obtained. FINDINGS: The heart size is normal. The pulmonary vasculature is normal. The lungs are clear. IMPRESSION: 1. No acute pulmonary process.
[2022-05-07] MEDS ORDERED: MAG HYDROX/AL HYDROX/SIMETH 30 ML, HYOSCYAMINE ELIXIR 10 ML, LIDOCAINE VISCOUS 2% 10 ML PO STA ×3 (15:14)
[2022-05-07] MEDS ORDERED: KETOROLAC 15 MG/ML 1 ML VIAL IM STA (15:43)
[2022-05-07] MEDS ORDERED: KETOROLAC 15 MG/ML 1 ML VIAL IVP STA (16:07)
[2022-05-07 16:17] LABS: Basophils % (A) 0 %; Eosinophils # (A) 0.5 k/uL (0-0.7); Eosinophils % (A) 6 %; HCT 42.3 % (34.0-46.0); HGB 14.1 gm/dL (11.4-16.0); Lymphocytes # (A) 2.1 k/uL (1.0-4.8); Lymphocytes % (A) 26 %; MCH 31.3 pg (25.0-35.0); MCHC 33.3 g/dL (31.0-37.0); Mean Platelet Volume 7.4; Monocytes # (A) 0.3 k/uL (0-1.0); Monocytes % (A) 4 %; Neutrophils # (A) 5.2 k/uL (1.3-7.7); Neutrophils % (A) 62 %; Platelet Count 204 k/uL (150-450); RDW 12.1 % (11.5-15.5); WBC 8.4 k/uL (3.8-10.6)
[2022-05-07 16:27] LABS: African American GFR (CKD) >90 (>60 ml/min/1.73 sqM); Anion Gap 5 mmol/L; Blood Urea Nitrogen 10 mg/dL (7-17); Calcium 9.2 mg/dL (8.4-10.2); Carbon Dioxide 26 mmol/L (22-30); Chloride 106 mmol/L (98-107); Glucose 92 mg/dL (74-99); Non-African American GFR(CKD) >90 (>60 ml/min/1.73 sqM); Potassium 4.5 mmol/L (3.5-5.1); Sodium 137 mmol/L (137-145)
[2022-05-07 17:31] VITALS: BP 114/69; PULSE 80; RESP 16
== END 2022-05-07 17:31 | disposition home or self-care (01) ==
LOC: EC 11:15
DX: M79.18 Myalgia, other site (principal); J45.909 Unspecified asthma, uncomplicated; F41.9 Anxiety disorder, unspecified; F32.A Depression, unspecified; Z91.040 Latex allergy status; Z79.899 Other long term (current) drug therapy; Z20.822 Contact with and (suspected) exposure to COVID-19
CPT/HCPCS: 36415; 93005; 85379; 80048; 84484; 85025; 87636; 71046; 99285; 96374; J1885

== ENCOUNTER → 2024-06-26 | Outpatient (CLI) | payer BC ==
--- NOTE | 2024-06-29 16:15 | MR ---
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 Arthrogram left hip. COMPARISON: 06/26/2024 arthrogram images. Hip radiograph 03/26/2016 TECHNIQUE: Multiplanar multi-sequential magnetic resonance imaging of the hip without contrast. IV Contrast: 0.035 mL Gadobutrol FINDINGS: Joint spaces and alignment: Normal Joint/bursal fluid: Normal Articular cartilage: Normal Acetabular labrum: Anterior superior tear of the labrum 201 image 26 and degeneration of the anterior labrum. Muscles/Tendons: Intact The tendons of the gluteal, hamstring, iliopsoas, and adductors are normal in within normal limits without evidence for edema and are intact. Abductor tendon insertions: Intact Intrapelvic structures: Normal Neurovascular structures: Normal Marrow: Mild degeneration changes of the acetabulum. The femoral head demonstrates normal morphology and signal characteristics. There is no evidence of fracture or acute process. The sacroiliac joints and pubic symphysis are noted to be unremarkable. Soft tissues: Normal Other: The ovaries, uterus, and urinary bladder are unremarkable. Articular morphology to the uterin e fundus versus septate uterus. No lymphadenopathy is visualized. IMPRESSION: 1. Anterior superior labral tear with degenerative anterior labrum. No evidence for a right hip fract ure, AVN, or bone marrow edema. 2. Mild osteoarthritic changes of the right hip. [facility], , 06/29/2024 4:13 PM
--- NOTE | 2024-07-02 14:45 | FL ---
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 1% Lidocaine was used as local anesthetic using a 25 gauge needle. A 22 gauge needle was then advanced into the left hip joint usin g fluoroscopic guidance. Approximately 10 cc of contrast was injected into the joint (an admixture of Gadavist, Isovue-370, and sterile saline). The needle was then removed and a Band-Aid was applied. The patient tolerated procedure well. The patient was then sent to the MR unit for MRI exam. DAP: machine too old to report dose. FINDINGS: Contrast was seen filling the left hip joint. No extracapsular contrast collections were noted.. IMPRESSION: Successful left hip arthrogram. MRI left hip report to follow. [facility], , 07/02/2024 2:42 PM
== END | disposition home or self-care (01) ==
LOC: RADFLMAIN 14:40
PROVIDERS: ATTEND Orthopaedic Surgery
DX: S73.192A Other sprain of left hip, initial encounter (principal); M16.11 Unilateral primary osteoarthritis, right hip; Q65.89 Other specified congenital deformities of hip; X58.XXXA Exposure to other specified factors, initial encounter
CPT/HCPCS: 27093; 73525; 73722; A9585; Q9967